=== PATIENT | male | born 1945 | race Caucasian/White ===

== ENCOUNTER → 2018-12-21 15:44 | Outpatient (CLI) | payer MEDICARE, OTHER, SELFPAY ==
--- NOTE | 2018-12-21 15:48 | CT_ITS ---
STUDY: CT ABDOMEN AND PELVIS WITH CONTRAST REASON FOR EXAM: Male, 73 years old. Gross hematuria. Complex cyst in right kidney RADIATION DOSAGE (If Supplied By Facility): CTDIvol = ( 20.62 ) mGy, DLP = ( 1791.42 ) mGycm TECHNIQUE: Transaxial images were obtained from the dome of the diaphragm to the symphysis pubis without oral contrast. Isovue 300 100ML IV was administered. Sagittal and coronal images were reconstructed. Individualized dose optimization techniques were used for this CT. COMPARISON: October 12, 2013 FINDINGS: The lung bases are clear. The liver is normal. No dilated intrahepatic biliary radicles. The gallbladder is normal with no calcifications within it. There is no pericholecystic fluid collection or streakiness The spleen is normal. The pancreas is normal. Both adrenals are normal. A small 9 mm area of cortical deficiency is in the lateral aspect of the right kidney. No abnormal masses, calcifications or hydronephrosis on either side. The stomach is normal. There is no bowel distention, acute appendicitis or diverticulitis. No constricting lesions are seen in large bowel. The abdominal wall is intact with no hernias. There is no ascites or any free intraperitoneal air. No indication of epiploic appendagitis The vascular structures in the retroperitoneum are normal. There is no retrocrural, retroperitoneal or mesenteric adenopathy. 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 There is a 1.3 cm well-circumscribed area of low attenuation in the anterior aspect of the prostate.. There is no inguinal or pelvic adenopathy. There is a prominent right inguinal canal. . CT/Abdomen/Pelvis W IV Cont ONLY IMPRESSION: No acute findings in the abdomen or pelvis. Specifically there is no acute appendicitis or diverticulitis. The cyst demonstrated right kidney examination of October 12, 2017 is not appreciated. It may have collapsed. No hydronephrosis and no abnormal calcifications in either kidney. The prostate is normal in size. There is a 1.2 cm area of low attenuation in the anterior aspect of the prostate. Prostatic neoplasm cannot be excluded Electronically Signed: Anant Ding MD at 3:42 EST Tel , Service support ,
[2018-12-22 03:41] LABS: CREATININE FINGERSTICK 0.7 mg/dL (0.70-1.30); EGFR FINGERSTICK > 60.0000 mL/min (>60)
== END ==
PROVIDERS: Family Provider Family Medicine; PCP Family Medicine; Referring Provider Nurse Practitioner Adult Health; Visit Provider Nurse Practitioner Adult Health
DX: R31.0 Gross hematuria (principal)
CPT/HCPCS: 74177; Q9967

== ENCOUNTER → 2019-12-16 12:15 | Outpatient (CLI) | payer MEDICARE, OTHER, SELFPAY ==
[2019-12-16 13:18] LABS: PSA,Total- Diagnostic 4.25 ng/mL (0.0-4.0)
== END ==
PROVIDERS: PCP Family Medicine; Referring Provider Urology; Visit Provider Urology
DX: N40.1 Benign prostatic hyperplasia with lower urinary tract symptoms (principal)
CPT/HCPCS: 36415; 84153

== ENCOUNTER → 2020-12-25 15:44 | Outpatient (CLI) | payer MEDICARE, OTHER, SELFPAY ==
[2020-12-25 17:50] LABS: PSA,Total - Annual Screen 5.48 ng/mL (0.00-4.00)
== END ==
PROVIDERS: PCP Family Medicine; Referring Provider Urology; Visit Provider Urology
DX: Z12.5 Encounter for screening for malignant neoplasm of prostate (principal)
CPT/HCPCS: 36415; 84153; G0103

== ENCOUNTER 2022-01-17 11:14 | Outpatient (CLI) | payer MEDICARE, OTHER, SELFPAY ==
[2022-01-17 12:51] LABS: PSA,Total- Diagnostic 8.12 ng/mL (0.0-4.0)
== END 2022-01-17 23:59 | disposition home or self-care (01) ==
LOC: LAB 11:17
PROVIDERS: PCP Family Medicine; Visit Provider Registered Nurse
DX: R97.20 Elevated prostate specific antigen [PSA] (principal)
CPT/HCPCS: 36415; 84153

== ENCOUNTER → 2023-05-19 | Outpatient (CLI) | payer MEDICARE, OTHER, SELFPAY ==
--- NOTE | 2023-05-19 10:07 | RAD_ITS ---
PROCEDURE: Fluoroscopic guided left shoulder injection. DATE: May 19, 2023. INDICATION: Male, 78 years old. Chronic left shoulder pain. PHYSICIAN: Hima Regan M.D. MEDICATIONS: 6 mg of betamethasone and 3 cc of 1% lidocaine. 2% lidocaine administered subcutaneously for local anesthesia. ACCESS SITE: Left shoulder. NEEDLE: 22-gauge spinal needle. FLUOROSCOPY TIME (if supplied): (0:44) minutes/seconds. 5 mGy. One image was submitted. FINDINGS: The risks, benefits, and alternatives to the procedure were explained to the patient. The specific risks of bleeding, infection, and neurovascular injury were detailed and accepted. Witnessed informed consent was obtained. A 22-gauge spinal needle was positioned under radiographic fluoroscopic localization. Approximately 2 cc of Isovue-300 instilled for localization purposes. Medication was then injected. The patient tolerated the procedure well without any immediate complications. RAD/Inj/Asp Ajay Jt Should/Hip/Knee IMPRESSION: 1. Successful fluoroscopic guided left shoulder injection. Electronically Signed: Hima Regan MD at 11:13 EDT ,
[2023-05-19] MEDS: Lidocaine 1% (5 ml sdv) 5 ML Vial 3 ML OPERA.SITE (10:36)
[2023-05-19] MEDS: Betamethasone/Betamethasone 30 MG/5 ML Vial 6 MG OPERA.SITE (10:42)
== END | disposition home or self-care (01) ==
LOC: RAD 10:04
PROVIDERS: PCP Family Medicine; Referring Provider Specialist; Visit Provider Specialist
DX: M19.012 Primary osteoarthritis, left shoulder (principal); M25.512 Pain in left shoulder
CPT/HCPCS: 20610; 77002; Q9967; J0702

== ENCOUNTER → 2024-01-19 | Outpatient (CLI) | payer MEDICARE, OTHER, SELFPAY ==
[2024-01-19 13:52] LABS: PSA,Total- Diagnostic 8.93 ng/mL (0.0-4.0)
== END | disposition home or self-care (01) ==
LOC: LAB 11:26
PROVIDERS: PCP Family Medicine; Referring Provider Nurse Practitioner; Visit Provider Nurse Practitioner
DX: R97.20 Elevated prostate specific antigen [PSA] (principal)
CPT/HCPCS: 36415; 84153

== ENCOUNTER → 2025-01-20 | Outpatient (CLI) | payer MEDICARE, OTHER, SELFPAY ==
[2025-01-20 12:47] LABS: PSA,Total- Diagnostic 9.48 ng/mL (0.00-4.00)
== END | disposition home or self-care (01) ==
LOC: LAB 10:41
PROVIDERS: PCP Family Medicine; Referring Provider Nurse Practitioner; Visit Provider Nurse Practitioner
DX: R97.20 Elevated prostate specific antigen [PSA] (principal)
CPT/HCPCS: 36415; 84153

== ENCOUNTER → 2025-03-04 | Outpatient (CLI) | payer MEDICARE, OTHER, SELFPAY ==
--- NOTE | 2025-03-04 10:53 | MRI_ITS ---
PROCEDURE: PELVIS W/WO CONTRAST, 03/04/2025 REASON FOR EXAM: ELEVATED PSA. PSA reportedly 9.48 on 01/20/2025. TECHNIQUE: Multisequence multiplanar MRI pelvis was performed with and without IV contrast. IV Contrast: 18 mL, unspecified contrast COMPARISON: None FINDINGS: Variable overall mild motion limitation. Some sequences mild/moderately motion degraded. Prostate size: 4.4 x 3.3 x 4.1 cm, estimated volume 31 mL. Per the above provided PSA, PSA density is 0.306 ng/mL. Tiny posterior midline likely prostatic utricle cyst. Likely prior TURP. Transition zone: Possible involvement of the LEFT posterior transition zone by below LEFT posterior peripheral zone lesion. Otherwise, PI-RADS 2 findings. Peripheral Zone: Background changes of likely prostatitis (PI-RADS 2). Additional lesions as below: *Lesion 1: LEFT posteromedial/posterolateral peripheral zone lesion extending from midgland to apex measuring up to 2.0 cm (series 14, images 16-21). Possible involvement of underlying LEFT posterior transition zone. *T2 score: 5 *DWI score: Borderline; felt best considered DWI score 3 *DCE: Positive. *Overall PI-RADS: PI-RADS 4. *Extracapsular extension:No definite extracapsular extension, however, there is capsular abutment well over 1 cm which increases the risk of occult early/microscopic extracapsular extension. Note that this includes the region of the LEFT neurovascular bundle and anterior rectum without gross invasion. Neurovascular bundles: As above.. Seminal vesicles: Unremarkable. Bladder: Underdistended and suboptimally evaluated. Mild bladder wall thickening and trabeculation suggesting possible chronic outlet obstruction. Lymph nodes: RIGHT distal external iliac node, 9 mm short axis.. Bones: No destructive or frankly suspicious bony lesions identified. Other: Trace hydroceles. Small fat containing RIGHT inguinal hernia. Lumbar spondylosis. MRI/Pelvis W/WO Contrast IMPRESSION: 1. 2.0 cm PI-RADS 4 lesion in the LEFT posterior peripheral zone midgland to ap ex. Possible involvement of the underlying LEFT posterior transition zone. 2. No definite extracapsular extension, however, there is capsular abutment wel l over 1 cm which increases the risk of occult early/microscopic extracapsular extension. Note that this includes the region o f the LEFT neurovascular bundle and anterior rectum without gross invasion. 3. Mildly enlarged distal RIGHT external iliac node by PI-RADS criteria. Given the context, early julio metastasis cannot be excluded. Recommend clinical follow-up. 4. Additional description as above. Reading Location: [id number]
== END | disposition home or self-care (01) ==
LOC: MRI 10:45
PROVIDERS: PCP Family Medicine; Referring Provider Urology; Visit Provider Urology
DX: R97.20 Elevated prostate specific antigen [PSA] (principal)
CPT/HCPCS: 72197; A9575; A4216

== ENCOUNTER → 2025-03-29 | Outpatient (CLI) | payer MEDICARE, OTHER, SELFPAY ==
--- NOTE | 2025-03-29 13:00 | PROSB_PTH ---
PATIENT: SHON PEPPER LOC: [facility] U#:[id number] AGE/SX: 79/M ROOM: RE03/29/[address]: Dr. Julio Cesar Allen MD : 1945 BED: DIS: 03/29/2025 SPEC #: [id number] RECD: 03/29/25 15:43 STATUS: MIC REAbdon #: [id number] MARY: 03/29/25 13:[address]: Julio Cesar Allen DEPT: SURGICAL PATHOLOGY RECD BY: Jonathan Carvalho ENTERED: 03/30/25 08:24 SP TYPE: PROST BX OTHR DR: Dr. Jasson Fields, DO Tissues: A - Prostate, NOS Procedures: Surgery Specimen Level IV HEADER OPERATION: Prostate biopsy PRE-OP DIAGNOSIS: Elevated PSA TISSUE SUBMITTED: A- Left mid MICROSCOPIC DIAGNOSIS A. 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 MICROSCOPIC DESCRIPTION Slides are reviewed. GROSS DESCRIPTION A. Received in formalin in a container labeled with the patient's name, date of , and LM are 4 white and wispy core biopsies of soft tissue ranging from 0.7 x 0.1 cm to 1.2 x 0.1 cm. Submitted in toto in A1-2. [facility] 03-30-2025 CPT:91787
== END | disposition home or self-care (01) ==
LOC: LABSPEC 16:14
PROVIDERS: PCP Family Medicine; Referring Provider Urology; Visit Provider Urology
DX: C61 Malignant neoplasm of prostate (principal)
CPT/HCPCS: 88305